=== PATIENT | male | born 1960 | race Caucasian/White ===

== ENCOUNTER 2017-11-05 06:00 | Emergency (ER) | payer OTHER ==
[2017-11-05 06:17] VITALS: BP 91/63
[2017-11-05] MEDS ORDERED: KETOROLAC TROMETHAMINE INJ/PF 30 MG/1 ML SDV IV ONE (07:33)
[2017-11-05] MEDS ORDERED: NORMAL SALINE 1000 ML 1,000 ML IV ONE ×3 (07:33→10:33)
--- NOTE | 2017-11-05 07:33 | ER Document Report ---
ED General <ANTONIO HULL - Last Filed: 11/05/17 14:37> - General Mode of Arrival: Ambulatory Information source: Patient TRAVEL OUTSIDE OF THE [place]. IN LAST 30 DAYS: No <JUVENCIO AMADOR - Last Filed: 11/06/17 22:34> - General Chief Complaint: Shortness Of Breath Stated Complaint: SHORTNESS OF BREATH Time Seen by Provider: 11/05/17 07:07 Notes: On clarifying the history, the patient reports that he woke up with burning sensation across his anterior chest that caused him to roll and talks about and was unable to get comfortable. He reports this occurred sometime between midnight and 5:00 in the morning but is not sure when. (DELLA,ANTONIO) 57-year-old male that presents to the emergency department today with complaints of a four-day history of fevers, chills, headache, generalized myalgias, and chest pain. Patient states his symptoms began the day after getting back from a work conference in [place] where he states there were "hundreds of people from all over the world". Patient describes his chest pain as a burning sensation and indicates that it radiates to his back. Patient complains of slight shortness of breath stating it "hurts a little bit" when taking a deep breath. (JUVENCIO AMADOR) - Related Data Allergies/Adverse Reactions: acetaminophen [From Percocet] Adverse Reaction (Verified 12/01/12 13:22) Nausea oxycodone HCl [From Percocet] Adverse Reaction (Verified 12/01/12 13:22) Nausea Past Medical History - General Information source: Patient, [facility] Records - Social History Smoking Status: Never Smoker Cigarette use (# per day): No Chew tobacco use (# tins/day): No Drug Abuse: None Family History: Reviewed & Not Pertinent Patient has suicidal ideation: No Patient has homicidal ideation: No Pulmonary Medical History: Reports: Hx Pneumonia Musculoskeletal Medical History: Reports Hx Arthritis <JUVENCIO AMADOR - Last Filed: 11/06/17 22:34> Review of Systems - Review of Systems Constitutional: See HPI, Chills, Fever EENT: No symptoms reported Cardiovascular: See HPI, Chest pain Respiratory: See HPI, Hurts to breathe Gastrointestinal: See HPI, Nausea Genitourinary: No symptoms reported Male Genitourinary: No symptoms reported Musculoskeletal: See HPI, Joint pain - generalized joint aches, Muscle pain - generalized muscles aches Skin: No symptoms reported Hematologic/Lymphatic: No symptoms reported Neurological/Psychological: See HPI, Headaches -: Yes All other systems reviewed and negative <JUVENCIO AMADOR - Last Filed: 11/06/17 22:34> Physical Exam <ANTONIO HULL - Last Filed: 11/05/17 14:37> <JUVENCIO AMADOR - Last Filed: 11/06/17 22:34> - Vital signs Vitals: Temp Pulse Resp BP Pulse Ox 99.2 F 87 20 91/63 L 95 11/05/17 06:03 11/05/17 06:03 11/05/17 06:03 11/05/17 06:03 11/05/17 06:03 - Notes Notes: Physical Exam: General: Alert, diaphoretic. HEENT: Normocephalic. Atraumatic. PERRL. Extraocular movements intact. Oropharynx clear. Neck: Supple. Non-tender. Respiratory: No respiratory distress. Clear and equal breath sounds bilaterally. Cardiovascular: Regular rate and rhythm. Abdominal: Normal Inspection. Non-tender. No distension. Normal Bowel Sounds. Back: Non-tender. No deformity or step off. Extremities: Moves all four extremities. Upper extremities: Normal inspection. Normal ROM. Lower extremities: Normal inspection. No edema. Normal ROM. No calf tenderness or swelling. Neurological: Normal cognition. AAOx4. Normal speech. Psychological: Normal affect. Normal Mood. Skin: Warm. Dry. Normal color. (JUVENCIO AMADOR) Course - Laboratory Result Diagrams: 11/05/17 07:32 11/05/17 07:32 - Diagnostic Test Radiology reviewed: Image reviewed, Reports reviewed - Chest x-ray is unremarkable - EKG Interpretation by Pr EKG shows normal: Sinus rhythm, Accord, Intervals, QRS Complexes, ST-T Waves Rate: Normal - 87 Rhythm: NSR Voltage: Decreased voltage When compared to previous EKG there are: Previous EKG unavailable - Consults [facility] Time consulted: 10:20 Consulted provider: other - Discussed with the negotiator at [facility], patient is accepted on Dr. Mccurdy's service. <ANTONIO HULL - Last Filed: 11/05/17 14:37> - Laboratory Result Diagrams: 11/05/17 07:32 11/05/17 07:32 <JUVENCIO AMADOR - Last Filed: 11/06/17 22:34> - Re-evaluation Re-evalutation: 11/05/17 09:19 The EKG is unremarkable. The sed rate is only 17, the CRP is 80. The CK-MB is 22.3 and the troponin is 7.78 The patient's history and these findings are very suspicious for a viral myocarditis. There is no family history of coronary artery disease, the patient does not smoke, patient does not have high blood pressure. 11/05/17 10:15 Repeat troponin done slightly less than 2 hours after the initial troponin is 15.4 11/05/17 10:37 The case was discussed with Dr. Eng the director voice registration rep, he reviewed both of the EKGs, and the lab work, he feels the patient should be transferred to a center that can do interventional cardiac catheterization and does not feel the patient should remain at [facility]. 11/05/17 12:30 At this time the patient is quite comfortable. He states the chest pain is gone but that he does have some shortness of breath. He had been sleeping. He is not on supplemental oxygen. His pulse ox is 94% on room air. 11/05/17 13:38 When I discussed the case with the negotiator at [facility], she was uncertain about what therapeutic measures should be taken. I told her I would send copies of the lab work and the EKGs and she would discuss the case with her attending and would get back to me. Just over an hour later, made a follow- up call to the cardiac connection to confirm that they had in fact receive the EKGs and lab work. They were going to contact the fellow again to let her know about the information I sent and that they were supposed to get back with me about patient management while he is waiting for bed assignment. It is now been over 1-1/2 hours since the last call to the [facility], and no one has called me. 11/05/17 14:38 Transport is here for the patient, his vital signs are essentially unchanged throughout the day with a blood pressure of 95/75, pulse 86, pulse ox is 98% on 2 L nasal cannula. He is stable for transfer. (ANTONIO HULL) - Vital Signs Vital signs: Temp Pulse Resp BP Pulse Ox 99.2 F 87 20 91/63 L 95 11/05/17 06:03 11/05/17 06:03 11/05/17 06:03 11/05/17 06:03 11/05/17 06:03 - Laboratory Laboratory results interpreted by me: 11/05/17 11/05/17 11/05/17 07:32 07:32 07:32 WBC 11.0 H RDW 14.2 H Lymphocytes % 10.7 L Absolute Neutrophils 8.5 H D-Dimer Glucose 120 H Creatine Kinase 255 H CK-MB (CK-2) 22.30 H C-Reactive Protein 79.8 H Urine Protein Urine Ketones Urine Blood 11/05/17 11/05/17 11/05/17 07:32 09:16 09:16 WBC RDW Lymphocytes % Absolute Neutrophils D-Dimer 0.56 H Glucose Creatine Kinase 408 H CK-MB (CK-2) 31.80 H C-Reactive Protein Urine Protein Urine Ketones Urine Blood 11/05/17 11/05/17 11/05/17 10:00 14:17 14:17 WBC RDW Lymphocytes % Absolute Neutrophils D-Dimer Glucose Creatine Kinase 515 H CK-MB (CK-2) 38.20 H C-Reactive Protein Urine Protein 30 H Urine Ketones TRACE H Urine Blood SMALL H Critical Care Note - Critical Care Note Total time excluding time spent on procedures (mins): 55 <ANTONIO HULL - Last Filed: 11/05/17 14:37> Discharge <ANTONIO HULL - Last Filed: 11/05/17 14:37> <JUVENCIO AMADOR - Last Filed: 11/06/17 22:34> - Discharge Clinical Impression: Viral syndrome, Elevated troponin I level Chest pain Qualifiers: Chest pain type: unspecified Qualified Code(s): R07.9 - Chest pain, unspecified Hypotension Qualifiers: Hypotension type: unspecified hypotension type Qualified Code(s): I95.9 - Hypotension, unspecified Condition: Fair Disposition: [facility] Referrals: DANETTE UMANA MD [Primary Care Provider] - Follow up as needed Scribe Attestation: 11/05/17 07:54 I personally performed the services described in the documentation, reviewed and edited the documentation which was dictated to the scribe in my presence, and it accurately records my words and actions. (ANTONIO HULL) Scribe Documentation - Scribe Written by Iain:: Iain Costa, 11/05/2017 0809 acting as scribe for :: Della <JUVENCIO AMADOR - Last Filed: 11/06/17 22:34>
[2017-11-05 07:46] LABS: ABSOLUTE LYMPHOCYTES (AUTO) 1.2 10^3/uL (0.5-4.7); ABSOLUTE MONOCYTES (AUTO) 1.3 10^3/uL (0.1-1.4); ABSOLUTE NEUT (AUTO) 8.5 10^3/uL (1.7-8.2); BASOPHILS % (AUTO) 0.1 % (0-2); EOSINOPHILS % (AUTO) 0.1 % (0-6); HEMATOCRIT 45.7 % (37.9-51.0); HEMOGLOBIN 15.7 g/dL (13.5-17.0); LYMPHOCYTES % (AUTO) 10.7 % (13-45); MEAN CORPUSCULAR HEMOGLOBIN 29.6 pg (27.0-33.4); MEAN CORPUSCULAR HGB CONC 34.4 g/dL (32.0-36.0); MEAN CORPUSCULAR VOLUME 86 fl (80-97); MONOCYTES % (AUTO) 11.6 % (3-13); PLATELET COUNT 226 10^3/uL (150-450); RED CELL DISTRIBUTION WIDTH 14.2 % (11.5-14.0); SEGMENTED NEUTROPHILS % (AUTO) 77.5 % (42-78); TOTAL CELLS COUNTED % (AUTO) 100 %
[2017-11-05 08:02] LABS: ALANINE AMINOTRANSFERASE 39 U/L (21-72); ALBUMIN 3.8 g/dL (3.5-5.0); ALKALINE PHOSPHATASE 85 U/L (38-126); ANION GAP 11 (5-19); ASPARTATE AMINO TRANSFERASE 47 U/L (17-59); BILIRUBIN,DIRECT 0.3 mg/dL (0.0-0.4); BILIRUBIN,TOTAL 0.5 mg/dL (0.2-1.3); BLOOD UREA NITROGEN 13 mg/dL (7-20); C-REACTIVE PROTEIN 79.8 mg/L (<10.0); CALCIUM 9.1 mg/dL (8.4-10.2); CARBON DIOXIDE 26 mmol/L (22-30); CHLORIDE 105 mmol/L (98-107); CREATINE KINASE 255 U/L (55-170); GLUCOSE 120 mg/dL (75-110); POTASSIUM 4.1 mmol/L (3.6-5.0); SODIUM 141.6 mmol/L (137-145); TOTAL PROTEIN 7.1 g/dL (6.3-8.2)
--- NOTE | 2017-11-05 08:12 | RADIOLOGY REPORT (SQ) ---
EXAM DESCRIPTION: CHEST SINGLE VIEW COMPLETED DATE/TIME: 11/05/2017 7:57 am REASON FOR STUDY: Chest pain COMPARISON: None. EXAM PARAMETERS: NUMBER OF VIEWS: One view. TECHNIQUE: Single frontal radiographic view of the chest acquired. RADIATION DOSE: NA LIMITATIONS: None. FINDINGS: LUNGS AND PLEURA: No opacities, masses or pneumothorax. No pleural effusion. MEDIASTINUM AND HILAR STRUCTURES: No masses. Contour normal. HEART AND VASCULAR STRUCTURES: Heart normal in size. Normal vasculature. BONES: No acute findings. HARDWARE: None in the chest. OTHER: No other significant finding. IMPRESSION: NO ACUTE RADIOGRAPHIC FINDING IN THE CHEST. TECHNICAL DOCUMENTATION: JOB ID: [id number] [employer]- All Rights Reserved Reading location - IP/workstation name: [email or web address]
[2017-11-05 08:24] LABS: ERYTHROCYTE SEDIMENTATION RATE 17 mm/hr (0-20)
--- NOTE | 2017-11-05 08:40 | EKG REPORT ---
SEVERITY:- OTHERWISE NORMAL ECG - SINUS RHYTHM LOW VOLTAGE IN FRONTAL LEADS : Confirmed by: Gadiel Maldonado 05-Nov-2017 08:39:10
[2017-11-05 09:57] LABS: CREATINE KINASE MB 31.8 ng/mL (<4.55); TROPONIN I 15.4 ng/mL
[2017-11-05] MEDS ORDERED: ASPIRIN 81 MG TABLET, CHEWABLE PO ONE (10:21)
[2017-11-05 10:29] LABS: APPEARANCE,URINE CLEAR; BILIRUBIN,URINE NEGATIVE (NEGATIVE); GLUCOSE, URINE NEGATIVE (NEGATIVE); KETONES,URINE TRACE mg/dL (NEGATIVE); LEUKOCYTE ESTERASE,URINE NEGATIVE (NEGATIVE); NITRITE,URINE NEGATIVE (NEGATIVE); PROTEIN,URINE 30 mg/dL (NEGATIVE); URINE SPECIFIC GRAVITY 1.029; UROBILINOGEN,URINE NEGATIVE mg/dL (<2.0)
[2017-11-05 10:30] LABS: COLOR,URINE YELLOW
[2017-11-05 10:39] LABS: INTERNATIONAL RATION (INR) 1.03
[2017-11-05 15:24] LABS: CREATINE KINASE MB 38.2 ng/mL (<4.55); TROPONIN I 20.5 ng/mL
--- NOTE | 2017-11-05 22:16 | EKG REPORT ---
SEVERITY:- OTHERWISE NORMAL ECG - SINUS RHYTHM LOW VOLTAGE IN FRONTAL LEADS : Confirmed by: Gadiel Maldonado 05-Nov-2017 22:15:37
== END 2017-11-05 14:50 | disposition short-term general hospital (02) ==
LOC: ER 06:00
DX: I95.9 Hypotension, unspecified (principal); R07.9 Chest pain, unspecified; B34.9 Viral infection, unspecified; R11.0 Nausea; R06.02 Shortness of breath; R50.9 Fever, unspecified; R79.89 Other specified abnormal findings of blood chemistry; Z88.6 Allergy status to analgesic agent
CPT/HCPCS: 93005; 99291; 96361; 96374; 36415; 82553; 82550; 85025; 85652; 85610; 85730; 86140; 80053; 81001; 84484; 85379; 83605; 71045; 93010; J1885; J7030

== ENCOUNTER 2018-03-05 18:45 | Emergency (ER) | payer OTHER ==
[2018-03-05] MEDS ORDERED: HYDROXYZINE PAMOATE 25 MG CAPSULE PO ONE (19:55)
[2018-03-05] MEDS ORDERED: LORAZEPAM 1 MG TABLET PO ONE (19:55)
--- NOTE | 2018-03-05 20:00 | ER Document Report ---
ED Medical Screen (RME) - General Chief Complaint: Chest Pain Stated Complaint: SHORTNESS OF BREATH Time Seen by Provider: 03/05/18 19:48 Notes: This 57-year-old male patient comes emergency room complaining of chest pressure today and feeling very short of breath and difficulty getting good breath. He has been having these symptoms now for several months. He was seen here on 11/05/2017 with similar symptoms and at that time found to have what was felt to be a viral myocarditis with a troponin that went from 7.78 up to 20.5 over a 7 hour period. He did have a CRP of almost 80, but a ESR of only 17. He was transferred to [facility] where they also felt he had a viral myocarditis, and started him on metoprolol and colchicine. He took his medications until about 01/24/2018 and stopped the medicine. He has continued to have his symptoms the entire time where he would frequently feel so short of breath he would have to go outside and walk around in the neighborhood to calm down and to get his breathing back to normal. 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 The concern today was that he is chest pressure was worse this morning, his shortness of breath seemed worse and he felt like he might have pneumonia, and his left hand and all 5 fingers began tingling. It is better right now. He seems to be very high strung, very anxious, and does admit that this may all be anxiety and a panic attack. He will be given a dose of Ativan, and hydroxyzine, and laboratory workup done to be sure it is not something other than anxiety. I have greeted and performed a rapid initial assessment of this patient. A comprehensive ED assessment and evaluation of the patient, analysis of test results and completion of the medical decision making process will be conducted by additional ED providers. TRAVEL OUTSIDE OF THE [place] IN LAST 30 DAYS: No - Related Data Allergies/Adverse Reactions: acetaminophen [From Percocet] Adverse Reaction (Verified 12/01/12 13:22) Nausea codeine Adverse Reaction (Verified 03/05/18 19:54) oxycodone HCl [From Percocet] Adverse Reaction (Verified 12/01/12 13:22) Nausea Past Medical History - Social History Chew tobacco use (# tins/day): No Frequency of alcohol use: Rare Drug Abuse: None - Past Medical History Cardiac Medical History: Reports: Hx Heart Attack Denies: Hx Hypertension Pulmonary Medical History: Reports: Hx Pneumonia Denies: Hx Asthma Neurological Medical History: Denies: Hx Cerebrovascular Accident, Hx Seizures Renal/ Medical History: Denies: Hx Peritoneal Dialysis GI Medical History: Denies: Hx Hepatitis, Hx Hiatal Hernia, Hx Ulcer Musculoskeltal Medical History: Reports Hx Arthritis Infectious Medical History: Denies: Hx Hepatitis Past Surgical History: Denies: Hx Open Heart Surgery, Hx Pacemaker Physical Exam - Vital signs Vitals: Temp Pulse Resp BP Pulse Ox 97.4 F 87 18 128/73 H 100 03/05/18 18:53 03/05/18 18:53 03/05/18 18:53 03/05/18 18:53 03/05/18 18:53 Course - Vital Signs Vital signs: Temp Pulse Resp BP Pulse Ox 97.4 F 87 18 128/73 H 100 03/05/18 18:53 03/05/18 18:53 03/05/18 18:53 03/05/18 18:53 03/05/18 18:53 Doctor's Discharge - Discharge Referrals: DANETTE UMANA MD [Primary Care Provider] - Follow up as needed
[2018-03-05 20:30] LABS: ABSOLUTE EOSINOPHILS # (AUTO) 0.1 10^3/uL (0.0-0.6); ABSOLUTE LYMPHOCYTES (AUTO) 1.5 10^3/uL (0.5-4.7); ABSOLUTE MONOCYTES (AUTO) 0.7 10^3/uL (0.1-1.4); BASOPHILS % (AUTO) 0.4 % (0-2); EOSINOPHILS % (AUTO) 1.8 % (0-6); HEMATOCRIT 45.9 % (37.9-51.0); HEMOGLOBIN 15.7 g/dL (13.5-17.0); LYMPHOCYTES % (AUTO) 20.8 % (13-45); MEAN CORPUSCULAR HEMOGLOBIN 29.3 pg (27.0-33.4); MEAN CORPUSCULAR HGB CONC 34.2 g/dL (32.0-36.0); MEAN CORPUSCULAR VOLUME 86 fl (80-97); MONOCYTES % (AUTO) 8.9 % (3-13); PLATELET COUNT 309 10^3/uL (150-450); RED BLOOD COUNT 5.35 10^6/uL (4.35-5.55); RED CELL DISTRIBUTION WIDTH 14.2 % (11.5-14.0); SEGMENTED NEUTROPHILS % (AUTO) 68.1 % (42-78); TOTAL CELLS COUNTED % (AUTO) 100 %; WHITE BLOOD COUNT 7.3 10^3/uL (4.0-10.5)
[2018-03-05 20:35] LABS: APPEARANCE,URINE CLEAR; BILIRUBIN,URINE NEGATIVE (NEGATIVE); COLOR,URINE YELLOW; GLUCOSE, URINE NEGATIVE (NEGATIVE); KETONES,URINE 20 mg/dL (NEGATIVE); LEUKOCYTE ESTERASE,URINE NEGATIVE (NEGATIVE); NITRITE,URINE NEGATIVE (NEGATIVE); PROTEIN,URINE 100 mg/dL (NEGATIVE); URINE SPECIFIC GRAVITY 1.023; UROBILINOGEN,URINE NEGATIVE mg/dL (<2.0)
[2018-03-05 20:49] LABS: BLOOD UREA NITROGEN 14 mg/dL (7-20); CALCIUM 9.5 mg/dL (8.4-10.2); GLUCOSE 103 mg/dL (75-110)
[2018-03-05 20:50] LABS: ALANINE AMINOTRANSFERASE 47 U/L (21-72); ALBUMIN 4.2 g/dL (3.5-5.0); ALKALINE PHOSPHATASE 96 U/L (38-126); ANION GAP 11 (5-19); ASPARTATE AMINO TRANSFERASE 43 U/L (17-59); BILIRUBIN,DIRECT 0.3 mg/dL (0.0-0.4); BILIRUBIN,TOTAL 0.5 mg/dL (0.2-1.3); C-REACTIVE PROTEIN 12.9 mg/L (<10.0); CARBON DIOXIDE 22 mmol/L (22-30); CHLORIDE 109 mmol/L (98-107); CREATINE KINASE 622 U/L (55-170); POTASSIUM 3.8 mmol/L (3.6-5.0); SODIUM 141.6 mmol/L (137-145); TOTAL PROTEIN 7.3 g/dL (6.3-8.2)
--- NOTE | 2018-03-05 20:53 | RADIOLOGY REPORT (SQ) ---
EXAM DESCRIPTION: CHEST SINGLE VIEW COMPLETED DATE/TIME: 03/05/2018 8:45 pm REASON FOR STUDY: SOB COMPARISON: None. EXAM PARAMETERS: NUMBER OF VIEWS: One view. TECHNIQUE: Single frontal radiographic view of the chest acquired. RADIATION DOSE: NA LIMITATIONS: None. FINDINGS: LUNGS AND PLEURA: No opacities, masses or pneumothorax. No pleural effusion. MEDIASTINUM AND HILAR STRUCTURES: No masses. Contour normal. HEART AND VASCULAR STRUCTURES: Heart normal in size. Normal vasculature. BONES: No acute findings. HARDWARE: None in the chest. OTHER: No other significant finding. IMPRESSION: NO ACUTE RADIOGRAPHIC FINDING IN THE CHEST. TECHNICAL DOCUMENTATION: JOB ID: [id number] [employer]- All Rights Reserved Reading location - IP/workstation name: [email or web address]
[2018-03-05] MEDS ORDERED: NORMAL SALINE 1000 ML 1,000 ML IV ONE (21:06)
--- NOTE | 2018-03-05 21:13 | ER Document Report ---
ED General - General Chief Complaint: Chest Pain Stated Complaint: SHORTNESS OF BREATH Time Seen by Provider: 03/05/18 19:48 Mode of Arrival: Ambulatory Information source: Patient Notes: 57-year-old male with past medical history of myocarditis presents emergency department with complaints of shortness of breath and chest pressure. Patient states that his symptoms have been present for several months. He was seen in the emergency department on 11/05/2017 with similar symptoms and diagnosed with viral myocarditis. He had an elevated troponin and was transferred to [facility]. He was started on metoprolol and colchicine. Patient took these medications until 01/24/2018. He did so with agreeability of his ict development manager, Dr. Verduzco. Patient states that he is continued to have his symptoms even with stopping the medication. Patient states that he has been under a lot of stress and sometimes when he feels short of breath he goes outside for a walk to try to calm down. He states that this does help. 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 Patient is very anxious in the emergency department. He states that he has a history of anxiety and panic attacks. He took himself off of the ant ianxiety medication a year ago. He states that he is not currently on any medications. Patient denies a history of coronary artery disease, hypertension, hyperlipidemia, diabetes, smoking, family history of coronary artery disease. Patient states that he had a normal stress test done during his workup in [place]. Patient denies any recent travel, recent surgery, calf pain, calf swelling, history of DVT or PE, hormone use, history of malignancy. Patient describes his chest pain as a dull pressure sensation located in the left chest. He states that he has having some numbness and tingling down his left arm. He denies any exacerbating factors. Patient was given hydroxyzine and Ativan in triage. Patient states that he is feeling much better. TRAVEL OUTSIDE OF THE [place] IN LAST 30 DAYS: No - HPI Onset: Other - Months Onset/Duration: Constant Quality of pain: Fullness Severity: Mild Pain Level: Denies Associated symptoms: Chest pain, Shortness of breath Exacerbated by: Denies Relieved by: Denies Similar symptoms previously: Yes Recently seen / treated by doctor: Yes - Related Data Allergies/Adverse Reactions: acetaminophen [From Percocet] Adverse Reaction (Verified 12/01/12 13:22) Nausea codeine Adverse Reaction (Verified 03/05/18 19:54) oxycodone HCl [From Percocet] Adverse Reaction (Verified 12/01/12 13:22) Nausea Past Medical History - General Information source: Patient - Social History Smoking Status: Never Smoker Chew tobacco use (# tins/day): No Frequency of alcohol use: Rare Drug Abuse: None Family History: Reviewed & Not Pertinent Patient has suicidal ideation: No Patient has homicidal ideation: No - Past Medical History Cardiac Medical History: Reports: Hx Heart Attack Denies: Hx Hypertension Pulmonary Medical History: Reports: Hx Pneumonia Denies: Hx Asthma Neurological Medical History: Denies: Hx Cerebrovascular Accident, Hx Seizures Renal/ Medical History: Denies: Hx Peritoneal Dialysis GI Medical History: Denies: Hx Hepatitis, Hx Hiatal Hernia, Hx Ulcer Musculoskeletal Medical History: Reports Hx Arthritis Infectious Medical History: Denies: Hx Hepatitis Past Surgical History: Denies: Hx Open Heart Surgery, Hx Pacemaker Review of Systems - Review of Systems Constitutional: No symptoms reported EENT: No symptoms reported Cardiovascular: Chest pain Respiratory: Short of breath Gastrointestinal: No symptoms reported Genitourinary: No symptoms reported Male Genitourinary: No symptoms reported Musculoskeletal: No symptoms reported Skin: No symptoms reported Hematologic/Lymphatic: No symptoms reported Neurological/Psychological: No symptoms reported -: Yes All other systems reviewed and negative Physical Exam - Vital signs Vitals: Temp Pulse Resp BP Pulse Ox 97.4 F 87 18 128/73 H 100 03/05/18 18:53 03/05/18 18:53 03/05/18 18:53 03/05/18 18:53 03/05/18 18:53 - Notes Notes: PHYSICAL EXAMINATION: GENERAL: Well-appearing, well-nourished and in no acute distress. HEAD: Atraumatic, normocephalic. EYES: Pupils equal round and reactive to light, extraocular movements intact, sclera anicteric, conjunctiva are normal. ENT: Nares patent, oropharynx clear without exudates. Moist mucous membranes. NECK: Normal range of motion, supple without lymphadenopathy LUNGS: Breath sounds clear to auscultation bilaterally and equal. No wheezes rales or rhonchi. HEART: Regular rate and rhythm without murmurs ABDOMEN: Soft, nontender, nondistended abdomen. No guarding, no rebound. No masses appreciated. Musculoskeletal: Normal range of motion, no pitting or edema. No cyanosis. NEUROLOGICAL: Cranial nerves grossly intact. Normal speech, normal gait. Normal sensory, motor exams PSYCH: Normal mood, normal affect. SKIN: Warm, Dry, normal turgor, no rashes or lesions noted. Course - Re-evaluation Re-evalutation: 03/05/18 21:13 EKG: Ventricular rate 85, IN interval 172, cures duration 88, QTc 467, normal sinus rhythm. No ST segment elevation. No ST segment depression. 03/05/18 23:24 Labs and imaging obtained. EKG is within normal limits. Chest xray does not show an acute process. Troponin is negative x2. D-dimer is negative. ESR is 9, CRP is 12.9, Creatinine kinase is 622. 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 I gave him a liter of fluids while in the ED. On re-evaluation, patient is feeling better. He feels the Ativan and hydroxyzine helped. Patient states that his symptoms have completely resolved. He denies having any chest pain or shortness of breath. As patient has a history of anxiety and panic attacks, I believe that is what was going on today. I will give him a prescription of the medication and instructed him to follow-up with his primary care physician and ict development manager for reevaluation this week. I also told him to take his medications as directed and to return to the emergency department if he begins having any worsening symptoms. The patient is agreeable with plan of care. 03/05/18 23:25 03/05/18 23:34 - Vital Signs Vital signs: Temp Pulse Resp BP Pulse Ox 97.4 F 87 18 128/73 H 100 03/05/18 18:53 03/05/18 18:53 03/05/18 18:53 03/05/18 18:53 03/05/18 18:53 - Laboratory Result Diagrams: 03/05/18 20:15 03/05/18 20:15 Laboratory results interpreted by me: 03/05/18 03/05/18 03/05/18 20:15 20:15 20:15 RDW 14.2 H Chloride 109 H Creatine Kinase 622 H C-Reactive Protein 12.9 H Urine Protein 100 H Urine Ketones 20 H Discharge - Discharge Clinical Impression: Shortness of breath, Anxiety Chest pain Qualifiers: Chest pain type: unspecified Qualified Code(s): R07.9 - Chest pain, unspecified Condition: Stable Disposition: HOME, SELF-CARE Instructions: Chest Pain of Unclear Cause ([facility]), Panic Attack ([facility]), Dyspnea, Nonspecific ([facility]) Prescriptions: Hydroxyzine HCl [Atarax 25 mg Tablet] 1 tab PO QID #10 tablet Lorazepam [Ativan 1 mg Tablet] 1 mg PO Q4 PRN #5 tab PRN Reason: Referrals: DANETTE UMANA MD [NO LOCAL MD] - Follow up as needed
[2018-03-05 21:25] LABS: ERYTHROCYTE SEDIMENTATION RATE 9 mm/hr (0-20)
[2018-03-05 23:26] VITALS: BP 117/63
--- NOTE | 2018-03-06 07:50 | EKG REPORT ---
SEVERITY:- NORMAL ECG - SINUS RHYTHM : Confirmed by: Julio Cesar Bernal MD 06-Mar-2018 07:50:21
== END 2018-03-05 23:45 | disposition home or self-care (01) ==
LOC: ER 18:45
DX: R06.02 Shortness of breath (principal); F41.9 Anxiety disorder, unspecified; R07.9 Chest pain, unspecified; Z88.6 Allergy status to analgesic agent; I25.2 Old myocardial infarction
CPT/HCPCS: 93005; 99285; 96360; 96361; 36415; 82550; 83735; 85025; 85652; 86140; 80053; 81001; 84484; 85379; 71045; 93010; J7030